=== PATIENT | male | born 1985 | race Caucasian/White ===

== ENCOUNTER 2016-10-15 | Emergency (ER) | payer OTHER ==
--- NOTE | 2016-10-15 10:53 | ED ---
Lower Extremity Injury HPI - General Chief Complaint: Extremity Injury, Lower Stated Complaint: RT KNEE PAIN Time Seen by Provider: 10/15/16 10:13 Source: patient, RN notes reviewed Mode of arrival: ambulatory Limitations: no limitations - History of Present Illness Initial Comments: This patient is 30-year-old man who presents to have evaluation for right knee pain. The patient states that the pain is probably been going on over 6 weeks. The patient states that the pain mainly is present in the evening after he has been walking around a firm amount. He does experience some clicking or popping within the knee if he extends it after having it flexed. He has not had locking of the joint. There was no trauma that he can point to that brought this on. He was seen in an urgent care and did have an x-ray at the time that it came on and was told that nothing was broken. The patient is able to walk and he has range of motion. The patient denies any fever or chills. He denies any swelling, redness, or heat associated with it. The patient denies any loss of strength or sensation. Patient states that he has been taking ibuprofen without much relief. MD Complaint: knee injury -: week(s) Injury: Knee: Right Place: home Improves With: nothing Worsens With: movement Associated Symptoms: snap/pop sensation, ambulatory - Related Data Previous Rx's Medication Instructions Recorded traMADol HCl [Ultram] 50 mg PO Q6H PRN #20 tab 10/15/16 Allergies Allergy/AdvReac Type Severity Reaction Status Date / Time No Known Allergies Allergy Verified 10/15/16 10:31 Review of Systems ROS Statement: Those systems with pertinent positive or pertinent negative responses have been documented in the HPI. ROS Other: All systems not noted in ROS Statement are negative. Constitutional: Denies: fever, chills, weakness Respiratory: Denies: cough, dyspnea Cardiovascular: Denies: chest pain, edema Musculoskeletal: Reports: as per HPI, arthralgia. Denies: back pain, joint swelling Neurological: Denies: weakness, numbness, paresthesias Past Medical History Past Medical History: No Reported History Additional Past Medical History / Comment(s): migraines, History of Any Multi-Drug Resistant Organisms: None Reported Past Surgical History: Hernia Repair Past Psychological History: Depression Smoking Status: Never smoker Past Alcohol Use History: None Reported, Rare Past Drug Use History: Marijuana General Exam Limitations: no limitations General appearance: alert, in no apparent distress Extremities exam: Present: normal inspection, full ROM, normal capillary refill , other (There may be a very small amount of joint effusion when compared with the left knee.). Absent: tenderness, pedal edema, calf tenderness Course Vital Signs 10/15/16 10:07 Temperature 97.8 F Pulse Rate 69 Respiratory 18 Rate Blood Pressure 121/86 O2 Sat by Pulse 100 Oximetry Disposition Clinical Impression: Knee pain, right Disposition: HOME SELF-CARE Condition: Good Instructions: Knee Sprain (ED) Prescriptions: traMADol HCl [Ultram] 50 mg PO Q6H PRN #20 tab PRN Reason: Pain Referrals: Kelley Luke MD [Primary Care Provider] - 1-2 days Roque Trivedi MD [STAFF PHYSICIAN] - 1-2 days
== END 2016-10-15 11:03 | disposition home or self-care (01) ==
DX: M25.561 Pain in right knee (principal)
CPT/HCPCS: 99283

== ENCOUNTER → 2017-02-06 | Outpatient (CLI) | payer OTHER ==
--- NOTE | 2017-02-06 14:38 | XR ---
EXAMINATION TYPE: XR chest 2V DATE OF EXAM: 02/06/2017 2:34 PM COMPARISON: NONE TECHNIQUE: PA and lateral views submitted. HISTORY: Pain FINDINGS: The lungs are clear and there is no pneumothorax, pleural effusion, or focal pneumonia. IMPRESSION: 1. No acute process.
--- NOTE | 2017-02-06 14:40 | XR ---
EXAMINATION TYPE: XR ribs LT DATE OF EXAM: 02/06/2017 2:34 PM COMPARISON: NONE HISTORY: Pain TECHNIQUE: 4 views of the left ribs obtained. FINDINGS: Osseous structures intact. IMPRESSION: 1. No acute displaced fracture.
== END ==
LOC: RADXRMAIN 14:02
PROVIDERS: ATTEND Family Medicine
DX: R07.81 Pleurodynia (principal); M25.512 Pain in left shoulder; M54.9 Dorsalgia, unspecified
CPT/HCPCS: 71020

== ENCOUNTER → 2017-02-14 | Outpatient (CLI) | payer OTHER ==
--- NOTE | 2017-02-14 07:32 | MR ---
EXAMINATION TYPE: MR shoulder LT wo con DATE OF EXAM: 02/14/2017 7:16 AM COMPARISON: NONE HISTORY: Left shoulder pain TECHNIQUE: Multiplanar multispin echo imaging of the left shoulder was performed. FINDINGS: Rotator cuff : There is thickening and heterogeneity of the supraspinatus tendon compatible with physical therapy director drew tendinopathy. No evidence for tear at this time. Remaining rotator cuff tendons have a normal giulia earance. Bursa: No bursal effusion or thickening is seen. Musculature: There is no muscular tear, contusion, or atrophy. Acromioclavicular joint : Lateral downsloping of the acromion and small subacromial spur results in m ild impingement. Minimal AC joint arthropathy suggested. Osseous structures : There is no evidence for fracture. Mild cystic changes seen within the greater t uberosity. Long biceps tendon : The biceps tendon is normally situated within the bicipital groove. N o complete or partial biceps tendon tear is present. Glenohumeral Joint fluid : There is no glenohumeral joint effusion. Cartilage and Bone : No focal hyaline cartilage defects are noted. No Hill-Sachs, reverse Hill-Sachs, or bony Bankart lesions are seen. Labrum : There are no SLAP or soft tissue Bankart lesions. No paralabral cysts are seen. OTHER FINDINGS : none IMPRESSION: 1. Chronic tendinopathy supraspinatus tendon secondary to mild impingement. No evidence for tear.
== END | disposition home or self-care (01) ==
LOC: RADMRIMAIN 06:41
PROVIDERS: ATTEND Family Medicine
DX: M75.92 Shoulder lesion, unspecified, left shoulder (principal); M75.42 Impingement syndrome of left shoulder

== ENCOUNTER 2018-02-07 17:56 | Emergency (ER) | payer OTHER ==
[2018-02-07 18:29] VITALS: BP 129/77; PULSE 67; RESP 18; TEMP 98.5
--- NOTE | 2018-02-07 18:57 | ED ---
General Adult HPI - General Chief complaint: Back Pain/Injury Stated complaint: Hip pain Time Seen by Provider: 02/07/18 18:45 Source: patient, RN notes reviewed Mode of arrival: ambulatory Limitations: no limitations - History of Present Illness Initial comments: 32-year-old male presents to the emergency department for a chief complaint of lower back pain 2 days. Patient states he was at work when he slipped but did not fall. Patient states this slipping motion hurt his back. Patient describes a sharp pain shooting down his right leg to his right knee. Patient is able to walk. Patient denies any bladder or bowel changes or saddle anesthesia. Patient has not had any Motrin. Patient denies any fevers. Patient is not diabetic. No IV drug use. Patient has no other complaints at this time including shortness of breath, chest pain, abdominal pain, nausea or vomiting, headache, or visual changes. - Related Data Previous Rx's Medication Instructions Recorded traMADol HCl [Ultram] 50 mg PO Q6H PRN #20 tab 10/15/16 Cyclobenzaprine [Flexeril] 5 mg PO TID #12 tablet 02/07/18 Ibuprofen [Motrin] 600 mg PO Q8HR PRN #20 tab 02/07/18 predniSONE 50 mg PO DAILY #5 tablet 02/07/18 Allergies Allergy/AdvReac Type Severity Reaction Status Date / Time No Known Allergies Allergy Verified 02/07/18 18:29 Review of Systems ROS Statement: Those systems with pertinent positive or pertinent negative responses have been documented in the HPI. ROS Other: All systems not noted in ROS Statement are negative. Past Medical History Past Medical History: No Reported History Additional Past Medical History / Comment(s): migraines, History of Any Multi-Drug Resistant Organisms: None Reported Past Surgical History: Adenoidectomy, Ear Surgery, Hernia Repair, Tonsillectomy Past Psychological History: Depression Smoking Status: Never smoker Past Alcohol Use History: None Reported, Rare Past Drug Use History: Marijuana General Exam Limitations: no limitations General appearance: alert, in no apparent distress (Sitting on edge of bed) Head exam: Present: atraumatic, normocephalic, normal inspection Eye exam: Present: normal appearance, PERRL, EOMI. Absent: scleral icterus, conjunctival injection, periorbital swelling Neck exam: Present: normal inspection, full ROM. Absent: tenderness, meningismus, lymphadenopathy Respiratory exam: Present: normal lung sounds bilaterally. Absent: respiratory distress, wheezes, rales, rhonchi, stridor Cardiovascular Exam: Present: regular rate, normal rhythm, normal heart sounds. Absent: systolic murmur, diastolic murmur, rubs, gallop, clicks Extremities exam: Present: full ROM (in BLE), normal capillary refill (Pedal pulse 2+ in lower extremities bilaterally.), other (Patient has sensation in lower extremities bilaterally. Strength 5+ in BLE.). Absent: tenderness (in BLE ) Back exam: Present: tenderness, paraspinal tenderness (Patient has right-sided paraspinal tenderness in the lumbar region.), vertebral tenderness (Patient has lumbar spine tenderness.). Absent: full ROM (Patient has about 30 of flexion and 10 extension. Patient is able to rotate bilaterally.), CVA tenderness (R) , CVA tenderness (L) Neurological exam: Present: alert, oriented X3, CN II-XII intact Course Vital Signs 02/07/18 18:26 Temperature 98.5 F Pulse Rate 67 Respiratory 18 Rate Blood Pressure 129/77 O2 Sat by Pulse 100 Oximetry Medical Decision Making - Medical Decision Making 32-year-old male presents to the emergency department for a chief complaint of low back pain 2 days. Patient slipped at work but did not fall. However the slipping motion injured his back. Patient denies any bladder or bowel changes or saddle anesthesia. He describes the pain as a sharp pain shooting from his lumbar region down to his buttock and through the back of his right leg to his knee. Patient has not had any Motrin today. Patient was given Toradol and Norflex in the emergency department which helped his pain. Patient was not driving home. On exam, patient has limited ROM of the low back but does have some flexion. patient is able to rotate. No neuro deficits. Full strength in BLE. X-ray demonstrates no acute fractures or dislocations. Patient likely has sciatica. He will be given a steroid as well as Flexeril and Motrin. He was educated not to drive or operate machinery with Flexeril. He is to follow up with primary care in 1-2 days. He will return to the emergency Department if any worsening symptoms. Disposition Clinical Impression: Sciatica Disposition: HOME SELF-CARE Condition: Good Instructions: Acute Low Back Pain (ED) Additional Instructions: Please take steroids as directed. Please take Motrin and Flexeril as directed as well. Do not drive or operate machinery all taking Flexeril. Follow-up with primary care in 1-2 days. Return to the emergency department if symptoms worsen. Prescriptions: Cyclobenzaprine [Flexeril] 5 mg PO TID #12 tablet Ibuprofen [Motrin] 600 mg PO Q8HR PRN #20 tab PRN Reason: Pain predniSONE 50 mg PO DAILY #5 tablet Is patient prescribed a controlled substance at d/c from ED?: No Referrals: Kelley Luke MD [Primary Care Provider] - 1-2 days Time of Disposition: 19:56
[2018-02-07] MEDS ORDERED: ORPHENADRINE 30 MG/ML 2 ML VIAL IM STA (19:01)
[2018-02-07] MEDS ORDERED: KETOROLAC 30 MG/ML 1 ML VIAL IM STA (19:01)
--- NOTE | 2018-02-07 19:34 | XR ---
EXAMINATION TYPE: XR lumbar spine 2 or 3V DATE OF EXAM: 02/07/2018 COMPARISON: NONE HISTORY: Low back pain TECHNIQUE: 3 views FINDINGS: The lumbar vertebra have normal alignment. Posterior elements are intact. The sacroiliac robin ints appear normal. I see no compression fracture. IMPRESSION: Negative lumbar spine exam.
== END 2018-02-07 20:05 | disposition home or self-care (01) ==
LOC: EC 17:56
DX: M54.41 Lumbago with sciatica, right side (principal); W18.40XA Slipping, tripping and stumbling without falling, unspecified, initial encounter; Y92.69 Other specified industrial and construction area as the place of occurrence of the external cause
CPT/HCPCS: 72100; 99283; 96372 ×2; J2360; J1885

== ENCOUNTER → 2018-02-11 | Outpatient (CLI) | payer OTHER ==
--- NOTE | 2018-02-11 21:41 | MR ---
EXAMINATION TYPE: MR lumbar spine wo con DATE OF EXAM: 02/11/2018 COMPARISON: Lumbar spine x-ray from 4 days ago. HISTORY: Low back pain with right-sided sciatica or ordered. Fell at work injury per patient, low germán k pain into right buttocks, 02/07/2018 TECHNIQUE: Multiplanar, multisequence imaging of the lumbar spine is performed without IV contrast. FINDINGS: Sagittal images of the lumbar spine show vertebral body heights and alignment to appear sat isfactory. There is disc desiccation with posterior disc herniation L5-S1 level otherwise the interve rtebral discs demonstrate normal heights and hydration. The conus medullaris is normal in position a nd signal ending at mid L1 level. The bone marrow signal intensity is within normal limits. No signi ficant spurring is seen. Axial images show the T12-L1, L1-L2, L2-L3, L3-L4, and L4-L5 levels to appear within normal limits. Axial images at the L5-S1 level shows broad-based disc protrusion but spinal canal is preserved. Ther e is mild to moderate right-sided anterior inferior neural foraminal narrowing with some encroachment along the inferior margin of right L5 nerve is felt present seen best sagittal image 12 and axial im age 4. Left-sided neural foramen is patent. Paraspinal muscle bulk is maintained. No suspicious retroperitoneal findings are seen. IMPRESSION: Degenerative change L5-S1 level as detailed above, encroachment on right L5-S1 nerve darryl g inferior margin is felt present due to disc herniation and likely accounting for patient's symptoms .
== END | disposition home or self-care (01) ==
LOC: RADMRIMAIN 19:43
PROVIDERS: ATTEND Family Medicine
DX: M51.17 Intervertebral disc disorders with radiculopathy, lumbosacral region (principal); M47.817 Spondylosis without myelopathy or radiculopathy, lumbosacral region
CPT/HCPCS: 72148

== ENCOUNTER → 2018-08-26 | Outpatient (CLI) | payer OTHER ==
--- NOTE | 2018-08-26 09:59 | MR ---
EXAMINATION TYPE: MR lumbar spine wo con DATE OF EXAM: 08/26/2018 COMPARISON: 02/11/2018 HISTORY: Radiculopathy TECHNIQUE: T1 and T2 axial and sagittal images of the lumbar spine are submitted. FINDINGS: There is no abnormal signal seen within the visualized spinal cord or paraspinal soft tissu es. At L1-2 there is no degenerative disc disease, disc herniation, or canal stenosis. No foraminal encro achment. At L2-3 there is no degenerative disc disease, disc herniation, or canal stenosis. No foraminal encro achment At L3-4 there is no degenerative disc disease, disc herniation, or canal stenosis. No foraminal encro achment At L4-5 there is no degenerative disc disease, disc herniation, or canal stenosis. No foraminal encro achment. Mild broad-based central disc bulging At L5-S1 there is loss of disc signal broad-based central disc protrusion. Motion artifact somewhat l imits this region. There is hypertrophic change since. Suggestion of previous surgery at this level. Mild central effacement of thecal sac. Normal signal posteriorly likely related to surgery. No contra st. There remains mild to moderate right-sided foraminal encroachment. Signal along the posterior lat eral right margin of the spinal canal may be related to post surgical scar or granulation. This could be correlated with post contrast imaging. IMPRESSION: 1. Suspect postsurgical change L5-S1. Post contrast images are not submitted. There remains degenerat parvez disc disease and broad-based central disc protrusion with hypertrophic change of the facets and m ild to moderate right-sided foraminal encroachment. 2. There is abnormal signal along the posterior lateral margin of the thecal sac at the level of L5-S 1 on the right. Post contrast images be obtained to assess for scar or granulation tissue.
== END | disposition home or self-care (01) ==
LOC: RADMRIMAIN 08:38
PROVIDERS: ATTEND Neurological Surgery
DX: M51.17 Intervertebral disc disorders with radiculopathy, lumbosacral region (principal); M46.97 Unspecified inflammatory spondylopathy, lumbosacral region; R93.7 Abnormal findings on diagnostic imaging of other parts of musculoskeletal system
CPT/HCPCS: 72148

== ENCOUNTER → 2018-10-30 | Outpatient (CLI) | payer OTHER ==
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
== END | disposition home or self-care (01) ==
LOC: RADMRIMAIN 16:57
PROVIDERS: ATTEND Neurological Surgery
DX: M51.37 Other intervertebral disc degeneration, lumbosacral region (principal)
CPT/HCPCS: 72148

== ENCOUNTER 2019-02-22 20:11 | Emergency (ER) | payer OTHER ==
[2019-02-22] MEDS ORDERED: IBUPROFEN 600 MG STARTER PACK 4 TAB BTL PO STA (20:38)
[2019-02-22 20:40] VITALS: BP 116/70; PULSE 84; RESP 18; TEMP 98.5
--- NOTE | 2019-02-22 21:07 | XR ---
EXAMINATION TYPE: XR foot complete LT DATE OF EXAM: 02/22/2019 COMPARISON: None HISTORY: Pain left foot TECHNIQUE: Three-view left foot FINDINGS: No acute fractures evident. Joint spaces are preserved. Soft tissues are unremarkable. IMPRESSION: 1. Normal three-view left foot
--- NOTE | 2019-02-22 21:09 | ED ---
Extremity Problem HPI - General Source: patient Mode of arrival: ambulatory Limitations: no limitations <Lynne Jane - Last Filed: 02/23/19 00:47> <Dorothy Marti - Last Filed: 02/23/19 07:35> - General Chief complaint: Extremity Problem,Nontraumatic Stated complaint: Foot pain Time Seen by Provider: 02/22/19 20:35 - History of Present Illness Initial comments: 33-year-old male patient presents to the emergency department today for evaluation of left foot pain. Patient states he isn't having pain for the last 2 days. Patient states he is working a new job and has been on his feet much more than usual. Patient states his been doing a lot of walking. Patient states started having discomfort left lateral foot yesterday. States that the pain became or significant today. It very difficult for him to ambulate. Denies any swelling or numbness or tingling to the foot. Denies any known injury. Denies any previous injury. Denies any swelling, tenderness, or erythema to the calf. Denies any medical problems. Patient denies any recent rash, fever, chills, shortness breath, chest pain, abdominal pain, nausea, vomiting, diarrhea, constipation, back pain, numbness, tingling, dizziness, weakness, hematuria, dysuria, urinary urgency, urinary frequency, headache, visual changes, or any other complaints. (Lynne Jane) - Related Data Previous Rx's Medication Instructions Recorded traMADol HCl [Ultram] 50 mg PO Q6H PRN #20 tab 10/15/16 Cyclobenzaprine [Flexeril] 5 mg PO TID #12 tablet 02/07/18 Ibuprofen [Motrin] 600 mg PO Q8HR PRN #20 tab 02/07/18 predniSONE 50 mg PO DAILY #5 tablet 02/07/18 Ibuprofen [Motrin] 600 mg PO Q8HR PRN #30 tab 02/22/19 Allergies Allergy/AdvReac Type Severity Reaction Status Date / Time No Known Allergies Allergy Verified 02/22/19 20:33 Review of Systems ROS Other: All systems not noted in ROS Statement are negative. <Lynne Jane - Last Filed: 02/23/19 00:47> ROS Other: All systems not noted in ROS Statement are negative. <Dorothy Marti - Last Filed: 02/23/19 07:35> ROS Statement: Those systems with pertinent positive or pertinent negative responses have been documented in the HPI. Past Medical History Past Medical History: No Reported History Additional Past Medical History / Comment(s): migraines, History of Any Multi-Drug Resistant Organisms: None Reported Past Surgical History: Adenoidectomy, Ear Surgery, Hernia Repair, Tonsillectomy Past Psychological History: Depression Smoking Status: Never smoker Past Alcohol Use History: None Reported, Rare Past Drug Use History: Marijuana <Lynne Jane M - Last Filed: 02/23/19 00:47> General Exam Limitations: no limitations General appearance: alert, in no apparent distress, other (This is a well- developed, well-nourished adult male patient in no acute distress. Vital signs upon presentation are temperature 98.5F, pulse 84, respirations 18, blood pressure 116/70, pulse ox 98% on room air.) Eye exam: Present: normal appearance, PERRL, EOMI. Absent: scleral icterus, conjunctival injection, periorbital swelling ENT exam: Present: normal exam, normal oropharynx, mucous membranes moist Respiratory exam: Present: normal lung sounds bilaterally. Absent: respiratory distress, wheezes, rales, rhonchi, stridor Cardiovascular Exam: Present: regular rate, normal rhythm, normal heart sounds. Absent: systolic murmur, diastolic murmur, rubs, gallop, clicks Extremities exam: Present: normal inspection, full ROM, tenderness (Left fifth of the tarsal tenderness.), normal capillary refill, other (No soft tissue swelling, erythema. Skin is Pinckard, warm, and dry. Cap refills less than 3 seconds. Pedal and posttibial pulses 2+ and equal bilaterally.). Absent: pedal edema, joint swelling, calf tenderness Neurological exam: Present: alert, oriented X3, CN II-XII intact Psychiatric exam: Present: normal affect, normal mood Skin exam: Present: warm, dry, intact, normal color. Absent: rash <Lynne Jane M - Last Filed: 02/23/19 00:47> Course Vital Signs 02/22/19 20:29 Temperature 98.5 F Pulse Rate 84 Respiratory 18 Rate Blood Pressure 116/70 O2 Sat by Pulse 98 Oximetry Medical Decision Making - Radiology Data Radiology results: report reviewed, image reviewed <Lynne Jane - Last Filed: 02/23/19 00:47> <Dorothy Marti - Last Filed: 02/23/19 07:35> - Medical Decision Making 33-year-old male patient presented to the emergency department today for evaluation of left foot pain after standing and walking for long periods of time for the last 2 days. Physical examination did reveal some left fifth metatarsal tenderness. No swelling. Neurovascular status is intact. X-ray was negative for any acute fractures or dislocations. Did discuss findings and results with the patient. We did discuss brain as a possible cause for her symptoms. Was placed in an Tera wrap. He is educated regarding rest, ice, elevation. He is instructed to follow-up with his primary care physician for recheck in 1-2 days. He is instructed to have repeat x-rays performed in 7-10 days if pain symptoms persist. He is given prescription for ibuprofen. Return parameters discussed in detail. He verbalizes understanding and agrees with this plan. (Lynne Jane) I was available for consultation in the emergency department. The history and physical exam were done by the Midlevel Provider. Medical decision making was done by the Midlevel Provider. I have reviewed the chart, however was not consulted specifically or made aware of this patient by the above midlevel provider and did not personally evaluate, interact with, or disposition this patient on the day of their visit Chart was dictated using Tendril dictation software. Attempts were made to correct any dictation errors however some typographical errors may persist. (Dorothy Marti) - Radiology Data 3 views of the left foot are obtained. Report was reviewed in its entirety. Impression by Dr. Hooks shows normal three-view left foot. (Lynne Jane) Disposition Is patient prescribed a controlled substance at d/c from ED?: No Time of Disposition: 21:23 <Lynne Jane - Last Filed: 02/23/19 00:47> <Dorothy Marti - Last Filed: 02/23/19 07:35> Clinical Impression: Sprain of left foot Disposition: HOME SELF-CARE Condition: Good Instructions (If sedation given, give patient instructions): Foot Sprain (ED) Additional Instructions: Wear Tera wrap for comfort and support. Take ibuprofen for pain control. Keep elevated, apply ice 20 minutes at a time at least 4 times daily. Return to the emergency department immediately for any new, worsening, or concerning symptoms. Prescriptions: Ibuprofen [Motrin] 600 mg PO Q8HR PRN #30 tab PRN Reason: Pain Referrals: Kelley Luke MD [Primary Care Provider] - 1-2 days
== END 2019-02-22 21:40 | disposition home or self-care (01) ==
LOC: EC 20:11
DX: S93.602A Unspecified sprain of left foot, initial encounter (principal); X50.9XXA Other and unspecified overexertion or strenuous movements or postures, initial encounter; Y93.01 Activity, walking, marching and hiking
CPT/HCPCS: 99283

== ENCOUNTER → 2020-02-08 | Outpatient (CLI) | payer OTHER ==
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
== END | disposition home or self-care (01) ==
LOC: RADMRIMAIN 11:54
PROVIDERS: ATTEND Family Medicine
DX: M51.37 Other intervertebral disc degeneration, lumbosacral region (principal); Z98.890 Other specified postprocedural states; M51.9 Unspecified thoracic, thoracolumbar and lumbosacral intervertebral disc disorder
CPT/HCPCS: 72158; A9585

== ENCOUNTER 2020-03-29 06:21 | Emergency (ER) | payer OTHER ==
[2020-03-29 06:30] VITALS: BP 138/89; PULSE 57; RESP 18; TEMP 98
[2020-03-29] MEDS ORDERED: HYDROmorphone 0.5 MG/0.5 ML SYRINGE IVP STA (06:43)
[2020-03-29] MEDS ORDERED: ONDANSETRON 4 MG/2 ML VIAL IVP STA (06:43)
[2020-03-29] MEDS ORDERED: KETOROLAC 30 MG/ML 1 ML VIAL IVP STA (06:43)
[2020-03-29] MEDS ORDERED: SODIUM CHLORIDE 0.9% 1,000 ML IV STA (06:43)
--- NOTE | 2020-03-29 07:05 | ED ---
Back Pain HPI - General Chief Complaint: Back Pain/Injury Stated Complaint: Back Pain Time Seen by Provider: 03/29/20 06:32 Source: patient, RN notes reviewed Mode of arrival: ambulatory Limitations: no limitations - History of Present Illness Initial Comments: This a 34-year-old male presents emergency Department with chief complaint of left-sided back pain, flank pain. Patient states is some onset of symptoms at 5 AM woke him up. Patient states that he does have a history of back pain which she's had a laminectomy. Patient recent MRI of his back because he states he missed his back up again. Patient denies any bowel, bladder incontinence or retention. He does admit to slight nausea. Patient states nothing makes his pain feel better or worse at this time. Patient has no dysuria no hematuria no history kidney stones. Denies any abdominal pain this time. No chest pain or shortness of breath. He has no symptoms in his lower extremities denies paresthesias or saddle anesthesias. - Related Data Previous Rx's Medication Instructions Recorded traMADol HCl [Ultram] 50 mg PO Q6H PRN #20 tab 10/15/16 Cyclobenzaprine [Flexeril] 5 mg PO TID #12 tablet 02/07/18 Ibuprofen [Motrin] 600 mg PO Q8HR PRN #20 tab 02/07/18 predniSONE 50 mg PO DAILY #5 tablet 02/07/18 Ibuprofen [Motrin] 600 mg PO Q8HR PRN #30 tab 02/22/19 Allergies Allergy/AdvReac Type Severity Reaction Status Date / Time No Known Allergies Allergy Verified 03/29/20 06:30 Review of Systems ROS Statement: Those systems with pertinent positive or pertinent negative responses have been documented in the HPI. ROS Other: All systems not noted in ROS Statement are negative. Past Medical History Past Medical History: No Reported History Additional Past Medical History / Comment(s): migraines, History of Any Multi-Drug Resistant Organisms: None Reported Past Surgical History: Adenoidectomy, Ear Surgery, Hernia Repair, Tonsillectomy Past Psychological History: Depression Smoking Status: Never smoker Past Alcohol Use History: Rare Past Drug Use History: Marijuana General Exam Limitations: no limitations General appearance: alert, in no apparent distress Head exam: Present: atraumatic, normocephalic, normal inspection Eye exam: Present: normal appearance, PERRL, EOMI. Absent: scleral icterus, conjunctival injection, periorbital swelling ENT exam: Present: normal exam, normal oropharynx, mucous membranes moist Neck exam: Present: normal inspection, full ROM. Absent: tenderness, meningismus, lymphadenopathy Respiratory exam: Present: normal lung sounds bilaterally. Absent: respiratory distress, wheezes, rales, rhonchi, stridor Cardiovascular Exam: Present: regular rate, normal rhythm, normal heart sounds. Absent: systolic murmur, diastolic murmur, rubs, gallop, clicks GI/Abdominal exam: Present: soft, normal bowel sounds. Absent: distended, tenderness, guarding, rebound, rigid Back exam: Present: normal inspection, full ROM, tenderness, CVA tenderness (L), paraspinal tenderness, vertebral tenderness. Absent: CVA tenderness (R) Neurological exam: Present: alert, oriented X3, CN II-XII intact, reflexes normal. Absent: motor sensory deficit Course Vital Signs 03/29/20 06:26 Temperature 98 F Pulse Rate 57 L Respiratory 18 Rate Blood Pressure 138/89 O2 Sat by Pulse 97 Oximetry Medical Decision Making - Medical Decision Making CT shows evidence of a 3 mm stone passed into the bladder, mild residual hydronephrosis. Patient's pain is greatly improved. Labs unremarkable. Patient we discharged in stable condition return parameters were discussed. - Lab Data Result diagrams: 03/29/20 06:52 03/29/20 06:52 Lab Results 03/29/20 03/29/20 Range/Units 06:52 06:52 WBC 12.3 H (3.8-10.6) k/uL RBC 4.91 (4.30-5.90) m/uL Hgb 14.3 (13.0-17.5) gm/dL Hct 43.5 (39.0-53.0) % MCV 88.4 (80.0-100.0) fL MCH 29.2 (25.0-35.0) pg MCHC 33.0 (31.0-37.0) g/dL RDW 12.0 (11.5-15.5) % Plt Count 248 (150-450) k/uL Neutrophils % 58 % Lymphocytes % 31 % Monocytes % 6 % Eosinophils % 3 % Basophils % 0 % Neutrophils # 7.1 (1.3-7.7) k/uL Lymphocytes # 3.9 (1.0-4.8) k/uL Monocytes # 0.8 (0-1.0) k/uL Eosinophils # 0.3 (0-0.7) k/uL Basophils # 0.1 (0-0.2) k/uL Sodium 140 (137-145) mmol/L Potassium 3.8 (3.5-5.1) mmol/L Chloride 104 (98-107) mmol/L Carbon Dioxide 28 (22-30) mmol/L Anion Gap 8 mmol/L BUN 12 (9-20) mg/dL Creatinine 0.93 (0.66-1.25) mg/dL Est GFR (CKD-EPI)AfAm >90 (>60 ml/min/1.73 sqM) Est GFR (CKD-EPI)NonAf >90 (>60 ml/min/1.73 sqM) Glucose 113 H (74-99) mg/dL Calcium 9.5 (8.4-10.2) mg/dL Total Bilirubin 0.3 (0.2-1.3) mg/dL AST 29 (17-59) U/L ALT 35 (4-49) U/L Alkaline Phosphatase 52 (38-126) U/L Total Protein 6.9 (6.3-8.2) g/dL Albumin 4.1 (3.5-5.0) g/dL Lipase 74 (23-300) U/L Disposition Clinical Impression: Kidney stone on left side Disposition: HOME SELF-CARE Condition: Stable Instructions (If sedation given, give patient instructions): Kidney Stones (ED) Additional Instructions: Please return to the Emergency Department if symptoms worsen or any other concerns. Is patient prescribed a controlled substance at d/c from ED?: No Referrals: Kelley Luke MD [Primary Care Provider] - 1-2 days Time of Disposition: 07:37
[2020-03-29 07:16] LABS: Basophils # (A) 0.1 k/uL (0-0.2); Basophils % (A) 0 %; Eosinophils # (A) 0.3 k/uL (0-0.7); Eosinophils % (A) 3 %; HCT 43.5 % (39.0-53.0); HGB 14.3 gm/dL (13.0-17.5); Lymphocytes # (A) 3.9 k/uL (1.0-4.8); Lymphocytes % (A) 31 %; MCH 29.2 pg (25.0-35.0); MCV 88.4 fL (80.0-100.0); Mean Platelet Volume 8.7; Monocytes # (A) 0.8 k/uL (0-1.0); Monocytes % (A) 6 %; Neutrophils # (A) 7.1 k/uL (1.3-7.7); Neutrophils % (A) 58 %; Platelet Count 248 k/uL (150-450); RBC 4.91 m/uL (4.30-5.90); WBC 12.3 k/uL (3.8-10.6)
[2020-03-29 07:17] LABS: ALT 35 U/L (4-49); AST 29 U/L (17-59); African American GFR (CKD) >90 (>60 ml/min/1.73 sqM); Albumin 4.1 g/dL (3.5-5.0); Alkaline Phosphatase 52 U/L (38-126); Anion Gap 8 mmol/L; Blood Urea Nitrogen 12 mg/dL (9-20); Calcium 9.5 mg/dL (8.4-10.2); Carbon Dioxide 28 mmol/L (22-30); Chloride 104 mmol/L (98-107); Glucose 113 mg/dL (74-99); Non-African American GFR(CKD) >90 (>60 ml/min/1.73 sqM); Potassium 3.8 mmol/L (3.5-5.1); Sodium 140 mmol/L (137-145); Total Bilirubin 0.3 mg/dL (0.2-1.3); Total Protein 6.9 g/dL (6.3-8.2)
--- NOTE | 2020-03-29 07:24 | CT ---
EXAMINATION TYPE: CT abdomen pelvis wo con DATE OF EXAM: 03/29/2020 COMPARISON: None HISTORY: Rt flank pain CT DLP: 824.2 mGycm Examination of the solid and hollow viscera is limited given the lack of contrast. FINDINGS: LUNG BASES: No evidence for nodule. No evidence for infiltrate. LIVER/GB: The gallbladder is unremarkable. No space-occupying hepatic lesion. PANCREAS: No pancreatic mass identified. No inflammatory process seen. SPLEEN: No evidence for splenomegaly. No intrasplenic lesions seen. ADRENALS: No adrenal nodules identified. No evidence for thickening. KIDNEYS: 3mm calculus resides within the urinary bladder consistent with a recently passed calculus. Mild residual left sided hydronephrosis. 4-5 small sub 3 mm calculi seen bilateral kidneys. No righ t sided hydronephrosis. No renal masses. BOWEL: Appendix has a normal appearance. No evidence of bowel obstruction. No inflammatory process. Lymph nodes: No evidence for adenopathy greater than 1 cm. Abdominal aorta: Atheromatous changes seen. No evidence for aneurysm. Genital organs: No significant abnormality. Other: No significant abnormality. IMPRESSION: 3mm calculus resides within the urinary bladder consistent with a recently passed calculus. Mild res idual left sided hydronephrosis.
[2020-03-29] MEDS ORDERED: ACET/COD 300 MG/30 MG STARTER PACK 6 TAB BTL PO STA (07:37)
== END 2020-03-29 08:20 | disposition home or self-care (01) ==
LOC: EC 06:21
DX: N13.2 Hydronephrosis with renal and ureteral calculous obstruction (principal)
CPT/HCPCS: 99284; 96374; 96375 ×2; 96361; 36415; 80053; 83690; 85025; 74176; J2405; J1885; J1170

== ENCOUNTER → 2020-08-11 | Outpatient (CLI) | payer OTHER ==
--- NOTE | 2020-08-11 11:48 | XR ---
EXAMINATION TYPE: XR lumbar spine 2 or 3V DATE OF EXAM: 08/11/2020 CLINICAL HISTORY: Status post fusion. TECHNIQUE: Standing frontal and lateral images of the lumbar spine are obtained. COMPARISON: Lumbar spine x-ray February 07, 2018 FINDINGS: There are 5 lumbar type vertebral bodies redemonstrated. New posterior interpedicular rods and screws transfix L5-S1 levels bilaterally. There is new metallic disc material L5-S1 level with f ixating screw through the central inferior L5 vertebra. Alignment is stable and satisfactory. Widenin g of disc space noted after surgery versus prior. Vertebral body heights and disc space heights above L5 level are stable and satisfactory. Vertical linear density anterior to the upper sacrum measuring 7 mm of uncertain etiology, possible metal fragment. IMPRESSION: As above.
== END | disposition home or self-care (01) ==
LOC: RADXRMAIN 10:51
PROVIDERS: ATTEND Neurological Surgery
DX: Z98.1 Arthrodesis status (principal)
CPT/HCPCS: 72100

== ENCOUNTER → 2020-10-31 | Outpatient (CLI) | payer OTHER ==
--- NOTE | 2020-10-31 14:12 | XR ---
EXAMINATION TYPE: XR lumbar spine 2 or 3V DATE OF EXAM: 10/31/2020 CLINICAL HISTORY: pain TECHNIQUE: Three views of the lumbar spine are submitted. COMPARISON: 08/11/2020 FINDINGS: Postsurgical changes of lumbar laminectomy and fusion at L5-S1 with intervertebral body stabilizer. A lignment is stable and anatomic. Remaining levels are within normal limits. IMPRESSION: Stable postoperative appearance of the lumbar spine.
== END | disposition home or self-care (01) ==
LOC: RADXRMAIN 13:42
PROVIDERS: ATTEND Neurological Surgery
DX: M54.5 Low back pain (principal); Z98.1 Arthrodesis status; Z98.890 Other specified postprocedural states
CPT/HCPCS: 72100

== ENCOUNTER 2020-12-03 09:49 | Emergency (ER) | payer OTHER ==
[2020-12-03 09:53] VITALS: BP 126/86; PULSE 83; RESP 18; TEMP 98
--- NOTE | 2020-12-03 10:11 | ED ---
Lower Extremity Injury HPI - General Chief Complaint: Extremity Injury, Lower Stated Complaint: Toe pain Time Seen by Provider: 12/03/20 10:01 Source: patient Mode of arrival: ambulatory Limitations: no limitations - History of Present Illness Initial Comments: 35-year-old male presents emergency department with chief complaint of foot pain. States tonight when for the past several weeks and is located on the right MTP joint. Patient reports pain is sharp and exacerbated with weightbearing and alleviated at rest. Denies any radiation of the pain, numbness, tingling. Denies taking medication to alleviate the symptoms. 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 Pain alleviated at rest. - Related Data Previous Rx's Medication Instructions Recorded traMADol HCl [Ultram] 50 mg PO Q6H PRN #20 tab 10/15/16 Cyclobenzaprine [Flexeril] 5 mg PO TID #12 tablet 02/07/18 Ibuprofen [Motrin] 600 mg PO Q8HR PRN #20 tab 02/07/18 predniSONE 50 mg PO DAILY #5 tablet 02/07/18 Ibuprofen [Motrin] 600 mg PO Q8HR PRN #30 tab 02/22/19 Allergies Allergy/AdvReac Type Severity Reaction Status Date / Time No Known Allergies Allergy Verified 12/03/20 09:51 Review of Systems ROS Statement: Those systems with pertinent positive or pertinent negative responses have been documented in the HPI. ROS Other: All systems not noted in ROS Statement are negative. Past Medical History Past Medical History: No Reported History Additional Past Medical History / Comment(s): migraines, History of Any Multi-Drug Resistant Organisms: None Reported Past Surgical History: Adenoidectomy, Ear Surgery, Hernia Repair, Tonsillectomy Past Psychological History: Depression Smoking Status: Never smoker Past Alcohol Use History: Rare Past Drug Use History: Marijuana General Exam Limitations: no limitations General appearance: alert, in no apparent distress, obese Head exam: Present: atraumatic, normocephalic, normal inspection Eye exam: Present: normal appearance, PERRL, EOMI Pupils: Present: normal accommodation ENT exam: Present: normal exam, normal oropharynx, mucous membranes moist Neck exam: Present: normal inspection, full ROM. Absent: tenderness, l ymphadenopathy Respiratory exam: Present: normal lung sounds bilaterally. Absent: respiratory distress Cardiovascular Exam: Present: regular rate, normal rhythm, normal heart sounds Extremities exam: Present: normal inspection, full ROM, tenderness (Mild tenderness on the first MTP joint. No calluses. No erythema, swelling of the joint.), normal capillary refill, other (Palpable DP and PT bilaterally.). Absent: pedal edema, joint swelling, calf tenderness Back exam: Present: normal inspection, full ROM. Absent: tenderness Neurological exam: Present: alert, oriented X3, normal gait Psychiatric exam: Present: normal affect, normal mood Skin exam: Present: warm, dry, intact, normal color Course Vital Signs 12/03/20 09:51 Temperature 98 F Pulse Rate 83 Respiratory 18 Rate Blood Pressure 126/86 O2 Sat by Pulse 99 Oximetry Medical Decision Making - Medical Decision Making 35-year-old male presents to the emergency room with a chief complaint of foot pain. On physical examination, tenderness at the first MTP joint. No swelling erythema. No concern for gout at this time. X-ray suggesting mild spurring and osteoarthritis in the first MTP joint. Patient was to follow-up with a sow farm technician. Return parameters discussed patient was understanding and agreeable. Case discussed with Dr. Avila. Disposition Clinical Impression: Osteoarthritis of first metatarsophalangeal (MTP) joint of right foot Disposition: HOME SELF-CARE Condition: Stable Instructions (If sedation given, give patient instructions): Metatarsalgia (DC) Additional Instructions: Follow-up with the sow farm technician. Alternate between Tylenol and Motrin for pain control. Return to emergency department if symptoms worsen. Is patient prescribed a controlled substance at d/c from ED?: No Referrals: Kelley Luke MD [Primary Care Provider] - 1-2 days Chaim Ahmadi DPM [STAFF PHYSICIAN] - 1-2 days Time of Disposition: 10:43
--- NOTE | 2020-12-03 10:39 | XR ---
Right foot HISTORY: Pain first metatarsophalangeal joint 3 views of the right foot Some mild degenerative change present at the first metatarsophalangeal joint with spurring. Alignment , joint spaces and bone mineralization are maintained. No fracture or dislocation. No evident erosion or soft tissue calcification. IMPRESSION: Mild osteoarthritic change.
== END 2020-12-03 11:05 | disposition home or self-care (01) ==
LOC: EC 09:49
DX: M19.071 Primary osteoarthritis, right ankle and foot (principal)
CPT/HCPCS: 99283

== ENCOUNTER → 2021-02-03 | Outpatient (CLI) | payer OTHER ==
--- NOTE | 2021-02-03 07:41 | CT ---
EXAMINATION TYPE: CT lumbar spine wo con DATE OF EXAM: 02/03/2021 COMPARISON: HISTORY: Arthrodesis status CT DLP: 1432.50 mGycm CONTRAST: None TECHNIQUE: CT of the lumbar spine is performed on a spiral scan at 3 mm thick sections. Reconstructed images are performed in the coronal and sagittal planes. FINDINGS: There is a L5-S1 fusion. Metallic foreign bodies cause some beam hardening artifact. T12-L1: No focal disc herniation or significant disc bulge is evident. No spinal canal stenosis or neural foraminal stenosis is present. L1-L2: No focal disc herniation or significant disc bulge is evident. No spinal canal stenosis or n eural foraminal stenosis is present L2-L3: No focal disc herniation or significant disc bulge is evident. No spinal canal stenosis or n eural foraminal stenosis is present L3-L4: Mild disc bulges anterior thecal sac flattening. No AP spinal canal stenosis present. Neural f oramen are patent L4-L5: Mild disc bulge has anterior thecal sac flattening. No AP spinal canal stenosis is present. Ne ural foramen are patent. L5-S1: Postsurgical changes are present. Being hardening artifact is present. No spinal canal stenosi s is evident. The neural foramen appear patent. L5-S1 pedicle screws are present Vertebral alignment appears normal. IMPRESSION: 1. Mild disc bulge at L3-4 L4-5 and sac flattening. 2. Postsurgical changes L5-S1. No stenosis is evident.
== END | disposition home or self-care (01) ==
LOC: RADCTMAIN 06:58
PROVIDERS: ATTEND Neurological Surgery
DX: M51.26 Other intervertebral disc displacement, lumbar region (principal); Z98.1 Arthrodesis status
CPT/HCPCS: 72131

== ENCOUNTER → 2021-05-12 | Outpatient (CLI) | payer OTHER ==
--- NOTE | 2021-05-12 16:43 | XR ---
EXAMINATION TYPE: XR lumbar spine 2 or 3V DATE OF EXAM: 05/12/2021 COMPARISON: 10/31/2020 HISTORY: Back surgery TECHNIQUE: 3 view lumbar spine FINDINGS: There are 5 lumbar-type vertebral bodies. L1-L4 pedicles are intact. L5 and S1 have pedicle screws. Disc spacers present at L5-S1. Remaining disc heights are preserved. Vertebral body heights are preserved. IMPRESSION: 1. Postsurgical changes L5-S1
== END | disposition home or self-care (01) ==
LOC: RADXRMAIN 12:39
PROVIDERS: ATTEND Neurological Surgery
DX: Z98.1 Arthrodesis status (principal)
CPT/HCPCS: 72100

== ENCOUNTER 2021-09-18 10:09 | Emergency (ER) | payer OTHER ==
[2021-09-18 10:12] VITALS: RESP 18; TEMP 98.3
--- NOTE | 2021-09-18 12:47 | ED ---
Fever HPI - General Chief Complaint: Fever Stated Complaint: body aches & diarrhea Time Seen by Provider: 09/18/21 10:17 Source: patient, RN notes reviewed Mode of arrival: ambulatory Limitations: no limitations - History of Present Illness Initial Comments: 35-year-old male presents to the emergency department complaining of generalized fatigue and muscle aches and not feeling well for the past several days. He notes he came to the emergency room to get evaluated for not feeling well. He denied being tested for Covid recently. He was otherwise well-appearing. He notes he gets hot and cold flashes. He denied taking any Tylenol or Motrin. He denied any chest pain shortness of breath headache nausea vomiting diarrhea constipation fever fatigue chills. - Related Data Home Medications Medication Instructions Recorded Confirmed PARoxetine [Paxil] 20 mg PO DAILY 09/18/21 09/18/21 busPIRone HCl [Buspar] 5 mg PO BID 09/18/21 09/18/21 Allergies Allergy/AdvReac Type Severity Reaction Status Date / Time No Known Allergies Allergy Verified 09/18/21 12:01 Review of Systems ROS Statement: Those systems with pertinent positive or pertinent negative responses have been documented in the HPI. ROS Other: All systems not noted in ROS Statement are negative. Past Medical History Past Medical History: No Reported History Additional Past Medical History / Comment(s): migraines, History of Any Multi-Drug Resistant Organisms: None Reported Past Surgical History: Adenoidectomy, Ear Surgery, Hernia Repair, Tonsillectomy Past Psychological History: Depression Smoking Status: Never smoker Past Alcohol Use History: Rare Past Drug Use History: Marijuana General Exam Limitations: no limitations General appearance: alert, in no apparent distress Head exam: Present: atraumatic, normocephalic, normal inspection Eye exam: Present: normal appearance, PERRL, EOMI. Absent: scleral icterus, conjunctival injection, periorbital swelling ENT exam: Present: normal exam, mucous membranes moist Neck exam: Present: normal inspection Respiratory exam: Present: normal lung sounds bilaterally. Absent: respiratory distress, wheezes, rales, rhonchi, stridor Cardiovascular Exam: Present: regular rate, normal rhythm, normal heart sounds. Absent: systolic murmur, diastolic murmur, rubs, gallop, clicks GI/Abdominal exam: Present: soft, normal bowel sounds. Absent: distended, tenderness, guarding, rebound, rigid Extremities exam: Present: normal inspection, full ROM, normal capillary refill. Absent: tenderness, pedal edema, joint swelling, calf tenderness Neurological exam: Present: alert, oriented X3 Psychiatric exam: Present: normal affect, normal mood Skin exam: Present: warm, dry, intact, normal color. Absent: rash Course Vital Signs 09/18/21 09/18/21 10:10 10:22 Temperature 98.3 F Pulse Rate 87 Respiratory 18 18 Rate Blood Pressure 128/85 O2 Sat by Pulse 99 Oximetry Medical Decision Making - Medical Decision Making 35-year-old male complaining of not feeling well. Covid test ordered. Covid test negative. Patient's vital signs are stable and within normal limits. Patient was informed of results is agreeable discharge home with conservative management. Case discussed with Dr. Herrera, patient discharge home. - Lab Data Lab Results 09/18/21 Range/Units 10:19 Coronavirus (PCR) Not Detected (Not Detectd) Disposition Clinical Impression: Upper respiratory tract infection Disposition: HOME SELF-CARE Condition: Stable Instructions (If sedation given, give patient instructions): Upper Respiratory Infection (ED) Additional Instructions: Please return to the Emergency Department if symptoms worsen or any other concerns. Follow-up primary care 1-2 days. Take Tylenol Motrin alternating every 3 hours as needed for aches pains and fevers. Is patient prescribed a controlled substance at d/c from ED?: No Referrals: Kelley Luke MD [Primary Care Provider] - 1-2 days Time of Disposition: 12:47
[2021-09-18 13:10] VITALS: BP 101/59; PULSE 65
== END 2021-09-18 13:10 | disposition home or self-care (01) ==
LOC: EC 10:09
DX: J06.9 Acute upper respiratory infection, unspecified (principal); Z20.822 Contact with and (suspected) exposure to COVID-19
CPT/HCPCS: 87635; 99283

== ENCOUNTER 2022-01-31 12:30 | Emergency (ER) | payer OTHER ==
[2022-01-31 12:42] VITALS: BP 133/92; PULSE 77; RESP 18; TEMP 98.2
[2022-01-31] MEDS ORDERED: PANTOPRAZOLE 40 MG/10 ML VIAL IVP STA (13:07)
[2022-01-31] MEDS ORDERED: SODIUM CHLORIDE 0.9% 500 ML 500 ML IV STA (13:19)
[2022-01-31 13:52] LABS: INR 0.9 (<1.2); Prothrombin Time 10.2 sec (9.0-12.0)
[2022-01-31 13:58] LABS: Basophils % (A) 1 %; Eosinophils % (A) 1 %; HCT 46.9 % (39.0-53.0); HGB 15.9 gm/dL (13.0-17.5); Lymphocytes # (A) 1.6 k/uL (1.0-4.8); Lymphocytes % (A) 29 %; MCV 88.4 fL (80.0-100.0); Mean Platelet Volume 9.3; Monocytes # (A) 0.4 k/uL (0-1.0); Monocytes % (A) 7 %; Neutrophils # (A) 3.4 k/uL (1.3-7.7); Neutrophils % (A) 60 %; Platelet Count 192 k/uL (150-450); RBC 5.31 m/uL (4.30-5.90); RDW 12.6 % (11.5-15.5); WBC 5.6 k/uL (3.8-10.6)
[2022-01-31 14:01] LABS: Lactic Acid, Venous 0.6 mmol/L (0.7-2.0)
[2022-01-31 14:02] LABS: ALT 45 U/L (4-49); AST 37 U/L (17-59); African American GFR (CKD) >90 (>60 ml/min/1.73 sqM); Albumin 4.2 g/dL (3.5-5.0); Alkaline Phosphatase 63 U/L (38-126); Anion Gap 9 mmol/L; Blood Urea Nitrogen 11 mg/dL (9-20); Calcium 8.9 mg/dL (8.4-10.2); Carbon Dioxide 26 mmol/L (22-30); Chloride 103 mmol/L (98-107); Glucose 110 mg/dL (74-99); Lipase 59 U/L (23-300); Magnesium 1.8 mg/dL (1.6-2.3); Non-African American GFR(CKD) >90 (>60 ml/min/1.73 sqM); Potassium 4.2 mmol/L (3.5-5.1); Sodium 138 mmol/L (137-145); Total Bilirubin 0.4 mg/dL (0.2-1.3); Total Protein 6.8 g/dL (6.3-8.2)
[2022-01-31] MEDS ORDERED: HYDROmorphone 0.5 MG/0.5 ML SYRINGE IVP STA (14:17)
[2022-01-31] MEDS ORDERED: HYDROmorphone 0.5 MG/0.5 ML SYRINGE IM STA (14:17)
--- NOTE | 2022-01-31 14:42 | ED ---
General Adult HPI - General Chief complaint: GI Bleed Stated complaint: stomach pain Time Seen by Provider: 01/31/22 12:44 Source: patient Mode of arrival: ambulatory Limitations: no limitations - History of Present Illness Initial comments: This 36-year-old male presents emergency department with an episode of bright red bloody stool this morning. Patient states he has had episodic sharp abdominal pain located around his umbilicus this seems to happen a few times a week and states this has been going on for a few months now. Patient states he had one episode of diarrhea this morning that was not bloody and then about an hour prior to coming to the hospital experienced an episode of bright red stool. Patient states he does think he has an external hemorrhoid, however he states it is not painful. Patient states his pain is currently 6/10 but states it does get up to 9/10 when he experiences sharp pains around his umbilicus. Patient states the pain is random and lasts for a few seconds. Patient states he had surgery on his back where they did have an incision in his abdomen but states operation was years ago. He denies any fever, nausea or vomiting. Patient denies any chest pain, shortness of breath, change in bladder, lightheadedness, dizziness, change in vision, rash. - Related Data Home Medications Medication Instructions Recorded Confirmed No Known Home Medications 01/31/22 01/31/22 Allergies Allergy/AdvReac Type Severity Reaction Status Date / Time No Known Allergies Allergy Verified 01/31/22 15:11 Review of Systems ROS Statement: Those systems with pertinent positive or pertinent negative responses have been documented in the HPI. ROS Other: All systems not noted in ROS Statement are negative. Past Medical History Past Medical History: No Reported History Additional Past Medical History / Comment(s): migraines, History of Any Multi-Drug Resistant Organisms: None Reported Past Surgical History: Adenoidectomy, Back Surgery, Ear Surgery, Hernia Repair, Tonsillectomy Past Psychological History: Depression Smoking Status: Never smoker Past Alcohol Use History: Rare Past Drug Use History: Marijuana General Exam Limitations: no limitations General appearance: alert, in no apparent distress Head exam: Present: atraumatic, normocephalic, normal inspection Eye exam: Present: normal appearance, PERRL, EOMI. Absent: scleral icterus, conjunctival injection, periorbital swelling ENT exam: Present: normal exam, mucous membranes moist Neck exam: Present: normal inspection. Absent: tenderness, meningismus, lymphadenopathy Respiratory exam: Present: normal lung sounds bilaterally. Absent: respiratory distress, wheezes, rales, rhonchi, stridor Cardiovascular Exam: Present: regular rate, normal rhythm, normal heart sounds. Absent: systolic murmur, diastolic murmur, rubs, gallop, clicks GI/Abdominal exam: Present: soft, tenderness (Tenderness around umbilicus), normal bowel sounds, other (Patient with vertical scar below umbilicus- no erythema, warmth or sign of infection). Absent: distended, guarding, rebound, rigid Rectal exam: Present: heme (-) stool, hemorrhoids (Small external hemorrhoid present, hemorrhoid nonthrombosed, light pink in color) Extremities exam: Present: normal inspection, full ROM, normal capillary refill. Absent: tenderness, pedal edema, joint swelling, calf tenderness Back exam: Present: normal inspection, full ROM, other (Incisions on either side of lower back- no erythema, warmth, swelling, drainage or sign of infection). Absent: CVA tenderness (R), CVA tenderness (L), paraspinal tenderness, vertebral tenderness Neurological exam: Present: alert, oriented X3, CN II-XII intact Psychiatric exam: Present: normal affect, normal mood Skin exam: Present: warm, dry, intact, normal color. Absent: rash Course Vital Signs 01/31/22 12:39 Temperature 98.2 F Pulse Rate 77 Respiratory 18 Rate Blood Pressure 133/92 O2 Sat by Pulse 99 Oximetry Medical Decision Making - Medical Decision Making This 36-year-old male presents emergency department with an episode of bloody stool this morning and episodic abdominal pain over the last few months. Patient without any leukocytosis. Coagulation unremarkable. Stool occult negative. CT abdomen and pelvis impression: Fluid distended small bowel could reflect changes of enteritis. Instructed patient to return to the emergency department if he experiences any more episodes of bloody stool. I did discharge patient without any symptoms and states he feels well. Instructed patient to follow-up with GI next 1-2 days. Instruct patient to follow-up with his primary care provider next 1-2 days. Patient verbally agreed to return to the emergency department if he experiences any more episodes of bloody stool- patient stated he would prefer to go home and follow up with GI palpation. Strict return precautions were discussed. Patient verbally agreed to plan. Patient sent home in stable condition. Case discussed in detail my attending, . - Lab Data Result diagrams: 01/31/22 13:33 01/31/22 13:33 Lab Results 01/31/22 01/31/22 01/31/22 Range/Units 13:33 13:33 13:33 WBC 5.6 (3.8-10.6) k/uL RBC 5.31 (4.30-5.90) m/uL Hgb 15.9 (13.0-17.5) gm/dL Hct 46.9 (39.0-53.0) % MCV 88.4 (80.0-100.0) fL MCH 30.0 (25.0-35.0) pg MCHC 34.0 (31.0-37.0) g/dL RDW 12.6 (11.5-15.5) % Plt Count 192 (150-450) k/uL MPV 9.3 Neutrophils % 60 % Lymphocytes % 29 % Monocytes % 7 % Eosinophils % 1 % Basophils % 1 % Neutrophils # 3.4 (1.3-7.7) k/uL Lymphocytes # 1.6 (1.0-4.8) k/uL Monocytes # 0.4 (0-1.0) k/uL Eosinophils # 0.0 (0-0.7) k/uL Basophils # 0.0 (0-0.2) k/uL PT 10.2 (9.0-12.0) sec INR 0.9 (<1.2) APTT 26.0 (22.0-30.0) sec Sodium (137-145) mmol/L Potassium (3.5-5.1) mmol/L Chloride (98-107) mmol/L Carbon Dioxide (22-30) mmol/L Anion Gap mmol/L BUN (9-20) mg/dL Creatinine (0.66-1.25) mg/dL Est GFR (CKD-EPI)AfAm (>60 ml/min/1.73 sqM) Est GFR (CKD-EPI)NonAf (>60 ml/min/1.73 sqM) Glucose (74-99) mg/dL Plasma Lactic Acid Kit (0.7-2.0) mmol/L Calcium (8.4-10.2) mg/dL Magnesium (1.6-2.3) mg/dL Total Bilirubin (0.2-1.3) mg/dL AST (17-59) U/L ALT (4-49) U/L Alkaline Phosphatase (38-126) U/L Ammonia (<30) umol/L Total Protein (6.3-8.2) g/dL Albumin (3.5-5.0) g/dL Lipase (23-300) U/L Stool Occult Blood Negative (Negative) 01/31/22 01/31/22 Range/Units 13:33 13:33 WBC (3.8-10.6) k/uL RBC (4.30-5.90) m/uL Hgb (13.0-17.5) gm/dL Hct (39.0-53.0) % MCV (80.0-100.0) fL MCH (25.0-35.0) pg MCHC (31.0-37.0) g/dL RDW (11.5-15.5) % Plt Count (150-450) k/uL MPV Neutrophils % % Lymphocytes % % Monocytes % % Eosinophils % % Basophils % % Neutrophils # (1.3-7.7) k/uL Lymphocytes # (1.0-4.8) k/uL Monocytes # (0-1.0) k/uL Eosinophils # (0-0.7) k/uL Basophils # (0-0.2) k/uL PT (9.0-12.0) sec INR (<1.2) APTT (22.0-30.0) sec Sodium 138 (137-145) mmol/L Potassium 4.2 (3.5-5.1) mmol/L Chloride 103 (98-107) mmol/L Carbon Dioxide 26 (22-30) mmol/L Anion Gap 9 mmol/L BUN 11 (9-20) mg/dL Creatinine 0.84 (0.66-1.25) mg/dL Est GFR (CKD-EPI)AfAm >90 (>60 ml/min/1.73 sqM) Est GFR (CKD-EPI)NonAf >90 (>60 ml/min/1.73 sqM) Glucose 110 H (74-99) mg/dL Plasma Lactic Acid Kit 0.6 L (0.7-2.0) mmol/L Calcium 8.9 (8.4-10.2) mg/dL Magnesium 1.8 (1.6-2.3) mg/dL Total Bilirubin 0.4 (0.2-1.3) mg/dL AST 37 (17-59) U/L ALT 45 (4-49) U/L Alkaline Phosphatase 63 (38-126) U/L Ammonia <9 (<30) umol/L Total Protein 6.8 (6.3-8.2) g/dL Albumin 4.2 (3.5-5.0) g/dL Lipase 59 (23-300) U/L Stool Occult Blood (Negative) Disposition Clinical Impression: Abdominal pain Disposition: HOME SELF-CARE Condition: Stable Instructions (If sedation given, give patient instructions): Gastrointestinal Bleeding (ED), Gastroenteritis (ED) Additional Instructions: Please follow up with GI next 1-2 days. Return to the emergency department if you experience more episodes of bloody stool. Follow-up with your primary care provider in the next 1-2 days. Return to the emergency department with any new, worsening, or concerning symptoms. Is patient prescribed a controlled substance at d/c from ED?: No Referrals: Kelley Luke MD [Primary Care Provider] - 1-2 days Izabela Jose MD [STAFF PHYSICIAN] - 1-2 days Time of Disposition: 15:55
--- NOTE | 2022-01-31 14:56 | CT ---
EXAMINATION TYPE: CT abdomen pelvis w con DATE OF EXAM: 01/31/2022 COMPARISON: 03/29/2020 HISTORY: Bright red stool and abdominal cramping since yesterday. CT DLP: 1543.9 mGycm CONTRAST: CT scan of the abdomen and pelvis is performed without Oral Contrast and with IV Contrast, patient in jected with 100ml mL of Isovue 300. FINDINGS: LUNG BASES-: No visible nodule. No infiltrate. LIVER/GB: No calcified gallstones. No space occupying hepatic lesion. Biliary tree is of normal ca liber. PANCREAS: No inflammation. No distinct mass. SPLEEN: No splenic enlargement. No lesion seen. ADRENALS: No nodule. No thickening. KIDNEYS/BLADDER: No hydronephrosis. No nephrolithiasis. No distinct renal mass. Urinary bladder g rossly unremarkable. BOWEL: Nonvisualization of the appendix. Fluid distended small bowel could reflect changes of enterit is. Correlate clinically. No inflammation. GENITAL ORGANS: No gross abnormality. LYMPH NODES: No greater than 1cm abdominal or pelvic lymph nodes are appreciated. AORTA: No significant abnormality. OSSEOUS STRUCTURES: No significant abnormality is seen. OTHER: No significant additional abnormality is seen. IMPRESSION: 1. Fluid distended small bowel could reflect changes of enteritis.
== END 2022-01-31 16:05 | disposition home or self-care (01) ==
LOC: EC 12:30
DX: R10.9 Unspecified abdominal pain (principal); K92.1 Melena
CPT/HCPCS: 36415; 80053; 82140; 83605; 83690; 83735; 85025; 85610; 85730; 82272; 74177; 99284; 96374; 96375; 96361; C9113; J1170; Q9967

== ENCOUNTER → 2022-04-10 | Day surgery (SDC) | payer OTHER ==
[2022-04-05 14:16] VITALS: BMI 35.2
[~2022-04-10] MED LIST: LACTATED RINGERS 1,000 ML IV SCH; LIDOCAINE 1% (10MG/ML) FOR IV START INTRADERMA PRN; PROPOFOL 10 MG/ML 20 ML VIAL IV ONE
[2022-04-10 08:13] VITALS: TEMP 97.4
--- NOTE | 2022-04-10 09:08 | P.PCN ---
Date of Procedure: 04/10/22 Procedure(s) Performed: BRIEF HISTORY: Patient is a 36-year-old pleasant white male scheduled for an elective colonoscopy as a part of evaluation of an episode of rectal bleeding that happened 2 months ago. PROCEDURE PERFORMED: Colonoscopy. PREOPERATIVE DIAGNOSIS: Rectal bleeding. IV sedation per Anesthesia. PROCEDURE: After informed consent was obtained, the patient, was brought into the endoscopy unit. IV sedation was administered by Anesthesia under continuous monitoring. Digital rectal examination was normal. Initially the Olympus CF-160 flexible video colonoscope was then inserted in the rectum, gradually advanced into the cecum without any difficulty. Careful examination was performed as the scope was gradually being withdrawn. Ileocecal valve and the appendiceal orifice were visualized and appeared normal. Prep was excellent. Mucosa of the cecum, ascending colon, transverse colon, descending colon, sigmoid colon, and rectum appeared normal. Retroflexion was performed in the rectum and no lesions were seen. The patient tolerated the procedure well. IMPRESSION: Normal-appearing colon from rectum to cecum with no evidence of colorectal neoplasia. RECOMMENDATIONS: Findings of this examination were discussed with the patient as well as his family. It is likely that he had an episode of acute colitis causing rectal bleeding that has spontaneously resolved. The He was advised to be on a high-fiber diet and take fiber supplements a regular basis. Recommend repeat screening colonoscopy at age 42..
[2022-04-10 09:15] VITALS: RESP 16
[2022-04-10 09:27] VITALS: BP 113/65; PULSE 75
== END ==
LOC: ORWHC2ENDO 07:45
PROVIDERS: ATTEND Internal Medicine Gastroenterology
DX: Z12.11 Encounter for screening for malignant neoplasm of colon (principal); Z87.19 Personal history of other diseases of the digestive system; Z80.7 Family history of other malignant neoplasms of lymphoid, hematopoietic and related tissues
CPT/HCPCS: 45378; J2704

== ENCOUNTER → 2023-01-17 | Outpatient (CLI) | payer OTHER ==
--- NOTE | 2023-01-17 19:29 | MR ---
EXAMINATION TYPE: MR shoulder RT wo con DATE OF EXAM: 01/17/2023 COMPARISON: None. HISTORY: Rt shoulder pain for 6 months plus with difficulty raising arm overhead TECHNIQUE: Multiplanar, multisequence imaging of the right shoulder is performed without contrast. FINDINGS: Rotator Cuff: Distal supraspinatus and infraspinatus tendons are intact. Rotator cuff muscle bulk is preserved. Acromioclavicular Joint: Mild to moderate narrowing and capsular hypertrophy. Underlying fat plane is maintained. Glenohumeral Joint: No significant effusion. No significant spurring. Labrum: The labrum appears grossly intact given limitation of non-arthrogram study. Biceps Tendon: The long head of biceps is in normal location within bicipital groove. Some surroundin g fluid is present. Bone marrow signal: Tiny subchondral cystic change superior humeral head posterior aspect. Other: No additional significant abnormality is appreciated. IMPRESSION: No rotator cuff or definitive labral tear. Some degenerative changes as detailed above. P ossible bicipital tenosynovitis. Correlate clinically.
== END | disposition home or self-care (01) ==
LOC: RADMRIMAIN 12:31
PROVIDERS: ATTEND Family Medicine
DX: M19.011 Primary osteoarthritis, right shoulder (principal)